=== PATIENT | male | born 1940 | race Caucasian/White ===

== ENCOUNTER 2016-07-28 20:19 | Observation (INO) | payer MEDICARE, OTHER ==
[~2016-07-28] VITALS: Ht 170.2 cm; Wt 116.9 kg
[2016-07-28 20:26] VITALS: BP 172/74; PULSE 62; RESP 18; O2SAT 96
--- NOTE | 2016-07-28 20:57 | ED.REPORT ---
HPI-Neurologic Deficit Date of Service Jul 28, 2016 ED Provider: Haris Cardona DO A 76 year old male with a history of TIA x2, migraines, and borderline hypertension presents to the ED complaining of a possible TIA. The pt began experiencing expressive aphasia, headache, and blurred vision seven days ago when he started a new job. In the ED he is experiencing headache, tinnitus, nausea, and tunnel vision. His last TIA was several years ago. The pt takes aspirin daily with no other medications. Nursing Notes Stated Complaint: POSSIBLE TIA Chief Complaint: Stroke Symptoms Nursing Notes Reviewed: Yes Allergies: Coded Allergies: Contrast Media (Verified Allergy, Unknown, 07/28/16) Penicillins (Verified Allergy, Unknown, 07/28/16) Scheduled ([D3]) 5,000 UNITS PO DAILY ([ultimate omega]) 1 TABLET PO TID ([tranquil sleep]) Unknown Dose PO HS ([bone-up]) Unknown Dose PO DAILY ([michelle]) 1 LOZENGE PO DAILY Aspirin (Aspirin) 81 Mg Tablet 81 MG PO DAILY Biotin (Reji Biotin) 10,000 Mcg Capsule 10,000 MCG PO DAILY Kava Root Extract (Kava Kava) 200 Mg Capsule 200 MG PO DAILY S-Adenosylmethionine Sul Tosyl (Nabil-E) 200 Mg Tablet 200 MG PO HS [place]'s Wort (Angel's Wort) 300 Mg Tablet 300 MG PO DAILY Scheduled PRN Acetaminophen (Tylenol Arthritis) 650 Mg Tablet.er 650 MG PO PRN For Pain Ibuprofen (Ibuprofen) 600 Mg Tablet 600 MG PO QID PRN PRN For Pain General Time Seen by Provider: 20:56 Chief Complaint Other (Possible TIA) Hx Obtained From: Patient Arrived By: Walk-in Sudden in Onset?: No Onset Occurred: 1 week ago Symptom Duration: Since onset Recent Healthcare: No recent doctor visit, No recent hospitalization Similar Sx Previous: Yes Risk Factors NIH Stroke Scale Level of Consciousness: Alert and responsive (0) Ask Month & Age: Both questions right (0) Open/Close Eyes/Hand Child And Adolescent Therapist: Performs both tasks (0) Horizontal EO Movements: None (0) Visual Lucas: No visual loss (0) Facial Palsy: Normal symmetry (0) Right Arm Motor Drift (10s): No drift 10 sec (0) Left Arm Motor Drift (10s): No drift 10 sec (0) Right Leg Motor Drift (5s): No drift 5 sec (0) Left Leg Motor Drift (5s): No drift 5 sec (0) Limb Ataxia FNF/Heel-Gaines: No ataxia (0) Sensation (Arms/Legs/Face): Pinprick less sharp (1) Language Aphasia: No aphasia, normal (0) Dysarthria: No dysarthria, normal (0) Extinction/Inattention: No exctinct/inattent (0) NIHSS Score: 1 Time NIHSS Performed: 21:40 Date NIHSS Performed: Jul 28, 2016 Past Medical History Past Medical History TIA x2 borderline HTN migraines Past Surgical History none reported Smoking History Unknown if Ever Smoker Ambulatory Status Independent Review of Systems Review of Systems Note: expressive aphasia tinnitus Constitutional: Denies: Fever Respiratory: Denies: Non-productive cough, Shortness of breath Cardiovascular: Denies: Chest pain GI: Reports: Nausea, Denies: Abdominal pain, Vomiting Musculoskeletal: Denies: Back pain Skin: Denies Rash Neurologic: Reports: Headache, Vision change Complete sys rev & neg: except as marked. Physical Exam Initial Vital Signs Vital Signs (First) Date Time Temp Pulse Resp B/P Pulse Ox O2 Delivery O2 Flow Rate FiO2 07/28/16 20:26 36.6 62 18 172/74 96 Room Air Initial VS: Reviewed General/Constitutional: Awake, Alert Head / Eyes: Atraumatic, Normocephalic, PERRL, EOMI Respiratory / Chest: Atraumatic, Breath sounds NL, Breath sounds = bilat, No respiratory distress Cardiovascular: Heart rate NL, Regular rhythm, Heart sounds NL Neurologic: Oriented X3, Speech NL, No motor deficits slightly decreased sensation of right first toe no facial asymmetry no aphasia ENT: Atraumatic, Airway patent, Mucous membranes moist Neck: Atraumatic, Supple, Full range of motion Abdomen: Atraumatic, Soft, Non-tender Back: Atraumatic, Full range of motion Upper Extremity / MS: Atraumatic, Full range of motion Lower Extremity / Pelvis / MS: Atraumatic, Full range of motion Skin: Atraumatic, Color NL, No rash, Warm, Dry Psychiatric: Affect NL, Mood NL Interpretation & Diagnostics Lab Results Interpretation Result Diagram: 07/28/16213907/28/162139 Test 07/28/16 21:40 White Blood Count 7.2th/mm3 (3.8-10.1) Red Blood Count 4.41mil/mm3 (4.40-5.80) Hemoglobin 13.4g/dL (13.8-17.2) Hematocrit 40.6% (41.0-50.0) Mean Corpuscular Volume 92.1fL (81-100) Mean Corpuscular Hemoglobin 30.4pg (27.0-35.0) Mean Corpuscular Hemoglobin Concent 33.0% (32.0-37.0) Red Cell Distribution Width 14.6% (12.3-15.4) Platelet Count 197bil/L (150-400) Neutrophils (%) (Auto) 55.7% (40-74) Lymphocytes (%) (Auto) 28.2% (14-46) Monocytes (%) (Auto) 11.4% (4-12) Eosinophils (%) (Auto) 3.6% (0-5) Basophils (%) (Auto) 0.7% (0-3) Prothrombin Time 10.3sec (8.1-12.5) Prothromb Time International Ratio 0.96ratio Sodium Level 140mEq/L (134-144) Potassium Level 4.7mEq/L (3.5-5.2) Chloride Level 104mEq/L (97-108) Carbon Dioxide Level 23mmol/L (18-29) Blood Urea Nitrogen 19mg/dL (8-27) Creatinine 1.37mg/dL (0.76-1.27) Estimat Glomerular Filtration Rate 54mL/min (>59) Glucose Level 116mg/dL (60-99) Calcium Level 9.3mg/dL (8.5-10.1) Total Bilirubin 0.2mg/dL (0.0-1.2) Aspartate Amino Transf (AST/SGOT) 20U/L (0-50) Alanine Aminotransferase (ALT/SGPT) 23U/L (0-44) Alkaline Phosphatase 52U/L (25-160) Troponin T 0.010ug/L (0.0-0.011) Total Protein 6.4g/dL (6.4-8.4) Albumin 3.8g/dL (3.4-5.0) Pulse Oximetry Interpretation Pulse Oximetry Interpretation: 96% on room air Pulse Oximetry: Pulse Ox normal ECG Interpretation ECG Interpretation: normal sinus rhythm with a rate of 56 left axis deviation low voltage, precordial leads Time: 21:29 Interpreted by: ED physician CT Head Interpretation IMPRESSION: 1. No acute intracranial abnormality. 2. Mild cerebral volume loss and chronic white matter small vessel ischemic changes. Dictated by: Marino Portillo M.D. on 07/28/2016 at 21:39 Approved by: Marino Portillo M.D. on 07/28/2016 at 21:41 Interpretation / Wet Read by: Interpret - Radiologist Re-Eval/Medical Decision Med Decision/Clinical Course Stuttering stroke type symptoms throughout the week. is not concerned that he has persistent aphasia. The only deficit I can appreciate is decreased sensation in his foot. His speech is rapid diverticula but again his family members not feel that it is at its baseline. Clearly out of the window for thrombolytics. CT was reassuring. We will admit for further stroke diagnostics including an MRI. Source of Hx: Old records Re-Evaluation/Progress : Time of Eval: 21:40 Patient Status: Condition improved Re-Evaluation/Progress Note: Pt rechecked, who is resting comfortably. NIH stroke scale is performed. Diagnosis and the plan for admission are discussed. The pt understands and agrees with the plan. All questions are addressed at this time. Consultation : Referral / Consult Name: Justin Billingsley MD Consulted With: Hospitalist Call Returned at: 22:13 [place]: Agrees with eval, Agrees with plan, Accepts admit Note: Spoke with Dr. Billingsley, hospitalist, regarding pt's case. Dr. Billingsley agrees with the evaluation and agrees to admit the pt. Counseled Regarding: Diagnosis, Lab results, Need for admission Discharge & Departure Impression: Primary Impression: Stroke CVA mechanism: unspecified Qualified Code: I63.9 - Cerebral infarction, unspecified Disposition: ADMITTED TO HOSPITAL Discharge Condition All VS Reviewed: Yes Condition: Stable Referrals: [facility] Julia Attestation Portions of this note were transcribed by Soledad Archuleta. I, Dr. Cardona personally performed the history, physical exam and medical decision-making; I reviewed and confirmed the accuracy of the information in the transcribed note. Signed by: Julia Benitez, 07/28/2016 and [id number]. copies to: [facility] Haris Cardona DO Jul 28, 2016 20:56 SOELDAD ARCHULETA Jul 28, 2016 21:15
--- NOTE | 2016-07-28 21:43 | DRSVH ---
PROCEDURE: CT BRAIN WITHOUT CONTRAST ([id number]) INDICATIONS: Stroke. Expressive aphasia and vision changes. TECHNIQUE: Noncontrast 4.5 mm thick angled axial sections acquired from the foramen magnum to the vertex, with c oronal reformats. COMPARISON: None. FINDINGS: Image quality: Excellent. CSF spaces: Basal cisterns are patent. No extra-axial fluid collections. The ventricles are symmet zachary in size and shape. There is mild cerebral volume loss, with resultant ventricular and sulcal pro minence. Brain: No intracranial hemorrhage, mass, or mass effect. There are subcortical, periventricular and deep white matter hypodensities consistent with mild chronic small vessel ischemic changes. There i s intracranial internal carotid artery atherosclerosis. Skull and face: Calvarium and visualized facial bones appear intact, without suspicious lesions. Sinuses: Visualized sinuses and mastoids are clear. IMPRESSION: 1. No acute intracranial abnormality. 2. Mild cerebral volume loss and chronic white matter small vessel ischemic changes. Dictated by: Marino Portillo M.D. on 07/28/2016 at 21:39 Approved by: Marino Portillo M.D. on 07/28/2016 at 21:41
[2016-07-28 21:49] LABS: BASOPHILS % (AUTO) 0.7 % (0-3); EOSINOPHILS % (AUTO) 3.6 % (0-5); MONOCYTES % (AUTO) 11.4 % (4-12); Mean Corpuscular Hemoglobin 30.4 pg (27.0-35.0); Mean Corpuscular Volume 92.1 fL (81-100); NEUTROPHILS % (AUTO) 55.7 % (40-74); Platelet Count 197 bil/L (150-400)
[2016-07-28 22:06] LABS: INR 0.96 ratio
[2016-07-28 22:23] LABS: TROPONIN T 0.01 ug/L (0.0-0.011)
[2016-07-28] MEDS ORDERED: S-AD200T PO (22:40)
[2016-07-28] MEDS ORDERED: IBUP-1827 PO (22:40)
[2016-07-28] MEDS ORDERED: KAVA200C PO (22:40)
[2016-07-28] MEDS ORDERED: ACET325T51 PO (22:40)
[2016-07-28] MEDS ORDERED: [UNRECOGNIZED DRUG - OTHER] PO (22:40)
[2016-07-28] MEDS ORDERED: D3 PO (22:40)
[2016-07-28] MEDS ORDERED: ULTIMATE OMEGA PO (22:40)
[2016-07-28] MEDS ORDERED: BIOT1000 PO (22:40)
[2016-07-28] MEDS ORDERED: ASPI-973 PO (22:40)
[2016-07-28] MEDS ORDERED: [UNRECOGNIZED DRUG - CODE] PO (22:40)
[2016-07-28] MEDS ORDERED: ACET-2766 PO (23:04)
[2016-07-28] MEDS ORDERED: [UNRECOGNIZED DRUG - OTHER] (23:04)
[2016-07-28 23:06] VITALS: BP 136/58; PULSE 58; RESP 15; O2SAT 95
[2016-07-28] MEDS ORDERED: gaba PO (23:08)
[2016-07-28] MEDS ORDERED: bone-up PO (23:08)
[2016-07-28 23:13] VITALS: BP 136/58; PULSE 58; RESP 15; O2SAT 95
[2016-07-28 23:34] LABS: APPEARANCE,URINE CLEAR (CLEAR,HAZY); COLOR,URINE YELLOW (YELLOW); OCCULT BLOOD,URINE NEGATIVE (NEGATIVE); PH,URINE 6.5 (5.0-8.0); UROBILINOGEN,URINE NORMAL (NORMAL)
[2016-07-28 23:46] VITALS: BP 157/74; PULSE 54; RESP 20; O2SAT 95
--- NOTE | 2016-07-29 00:45 | PCM.HPMED ---
Subjective Date of Service Jul 28, 2016 Primary Provider: Admitting Physician: Justin Billinsgley MD Primary Care Physician: Nopcp Attending Physician: Justin Billingsley MD Chief Complaint: Multiple neurological complaints. History of Present Illness: No PCP reported. Teto is an incredibly pleasant 76-year-old gentleman who is obese and has a history of multiple TIAs. He is previously been followed closely by physicians [facility] in [facility]) with a reportedly stable bilateral carotid ultrasound approximately one month ago (reports 60% occlusion on the left, 50% occlusion on the right). He does take a full dose aspirin daily, but is not on any other medications. Teto presents approximately one week after initiation of the following symptoms: Mild difficulty with word finding, reading comprehension, writing expression. The symptoms began on approximately the of this month while the patient was performing work on a computer (he was filling out unemployment paperwork). He reports that the symptoms noted were similar to his previous TIAs. He also reports associated blurry vision which is described as mild to minimal. 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 He reports that he has had difficulty remembering routes and branch locations. He reports that these difficulties have persisted for approximately the last week without any significant periods of resolution. He has noted that once or twice over the last several days he has felt somewhat unsteady on his feet, but denies falls. Patient also reports a history of migraines (mostly during childhood, but has had 3 over the last couple of months) associated with tunnel vision and subjective decreased vision in the left eye specifically. He reports that he had a 12/10 migraine headache on Saturday (07/15/16), and reports that he currently has a 2-3/10 headache that "feels like it is becoming a migraine" associated with a sensation of pulling behind the eyes bilaterally and posterior head discomfort. Patient and his spouse notes significant psychosocial stressors. They currently have a grandson living with them who reportedly has ADHD and some component of autism. The patient was also laid off from work a couple weeks ago , and recently started a new job that has significant additional work responsibilities including more work on the computer. They also just recently moved (this last summer) from [facility] to [facility]. They report significant stress associated with the aforementioned life events, and wonder if these stressors have contributed to his current presentation. Given the concerning neurologic symptoms, and his history of TIAs, recommendation is admission for CVA/TIA workup. Patient is admitted under observation status with expected length of stay less than 2 midnights due to severity of presenting symptoms, risk of adverse event, and complexity of treatment plan. Review of Systems: Comprehensive review of systems conducted and was negative except for the pertinent positives listed in history of present illness above. Allergies Coded Allergies: Contrast Media (Verified Allergy, Unknown, 07/28/16) Penicillins (Verified Allergy, Unknown, 07/28/16) Home Medications Med rec completed: Acetaminophen 650 mg as needed for pain Aspirin 81 mg daily Biotin 10,000 g daily Ibuprofen 600 mg 4 times a day as needed for pain Kava root extract 200 mg daily Nabil-E2 100 mg at hour of sleep Angel's wort 300 mg daily "Bone-up" tablet daily D3 5000 units daily "Kale" 1 lozenge daily "Tranquil sleep" tablet at hour of sleep "Ultimate [place]ternut" 1 tablet 3 times a day PMH Migraines History of TIAs * Reports at least 2 TIAs historically, and currently on daily aspirin Obesity Both patient and spouse note "undiagnosed" ADD for which the patient takes increased doses of vitamin D and Fish oil Back surgery - reports titanium basket replacement of lumbar disc Left foot surgery with titanium hardware (arch repair) Multiple right hammertoe surgeries Multiple left trigger finger releases Father with heart disease (AL at age 64 with subsequent CABG) Mother with lung/throat/metastatic cancer (significant tobacco and alcohol use throughout her life) Maternal grandfather with premature CAD, AL at age 30 Paternal grandfather with premature CAD, AL at age 47 Social History Hx Alcohol Use: Yes (quit in 1976) Hx Substance Use: Yes (reports history of cocaine and marijuana use in the early (while he was in the "[employer] business")) Hx Tobacco Use: Yes (quit in 1971) Smoking Status: Former Smoker Living Arrangement: with Family (with spouse and their grandchild on [employer]) Additional Information Patient served in the [employer] from [id number] (he was never deployed and served in [facility]). Lifelong [place]ian. Only travel is up to [place] (his spouse is from [place]) . 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 Exam Vital Signs Vital Sign - Last Date Time Temp Pulse Resp B/P Pulse Ox O2 Delivery O2 Flow Rate FiO2 07/28/16 20:26 36.6 62 18 172/74 96 Room Air Exam General: Alert, Oriented X3, Cooperative, No Acute Distress Head: Normocephalic, atraumatic. External ears normal. Eyes: PERRLA, EOMI. Anicteric sclerae. Mouth: Mouth Normal, Mucous Membranes Moist/Rawlings Neck: Neck supple with full range of motion. No Thyromegaly. Chest & Lungs: Clear to auscultation bilaterally with no crackles, wheezes, or rhonchi. Cardiovascular: Regular Rate/Rhythm, Normal S1, Normal S2, No Murmurs/Rubs/ Gallops. Radial pulses are 2+ bilaterally. No carotid bruit appreciated bilaterally. Abdomen: Non-tender, Non-distended, No masses, Normoactive bowel tones, Soft Musculoskeletal: Normal Range of Motion Extremities: No cyanosis/clubbing/edema bilat. Right foot is noticeably shorter than the left with indication for right-sided hammertoe surgeries. Neurological: Grossly Neurologically Intact, Cranial Nerves 2-12 Intact, Normal Speech, Strength Normal 4/4 ext, Sensation Intact, Cerebellar Function nl Finger-Nose. NIHSS score of 1 by ER physician, and 0 for me. Psych: Normal mood and affect. Thought process and content intact. Lab and Diagnostics Labs Laboratory Tests 72 Hours Test 07/28/16 21:40 07/28/16 23:10 White Blood Count 7.2th/mm3 (3.8-10.1) Red Blood Count 4.41mil/mm3 (4.40-5.80) Hemoglobin 13.4g/dL (13.8-17.2) Hematocrit 40.6% (41.0-50.0) Mean Corpuscular Volume 92.1fL (81-100) Mean Corpuscular Hemoglobin 30.4pg (27.0-35.0) Mean Corpuscular Hemoglobin Concent 33.0% (32.0-37.0) Red Cell Distribution Width 14.6% (12.3-15.4) Platelet Count 197bil/L (150-400) Neutrophils (%) (Auto) 55.7% (40-74) Lymphocytes (%) (Auto) 28.2% (14-46) Monocytes (%) (Auto) 11.4% (4-12) Eosinophils (%) (Auto) 3.6% (0-5) Basophils (%) (Auto) 0.7% (0-3) Prothrombin Time 10.3sec (8.1-12.5) Prothromb Time International Ratio 0.96ratio Sodium Level 140mEq/L (134-144) Potassium Level 4.7mEq/L (3.5-5.2) Chloride Level 104mEq/L (97-108) Carbon Dioxide Level 23mmol/L (18-29) Blood Urea Nitrogen 19mg/dL (8-27) Creatinine 1.37mg/dL (0.76-1.27) Estimat Glomerular Filtration Rate 54mL/min (>59) Glucose Level 116mg/dL (60-99) Calcium Level 9.3mg/dL (8.5-10.1) Total Bilirubin 0.2mg/dL (0.0-1.2) Aspartate Amino Transf (AST/SGOT) 20U/L (0-50) Alanine Aminotransferase (ALT/SGPT) 23U/L (0-44) Alkaline Phosphatase 52U/L (25-160) Troponin T 0.010ug/L (0.0-0.011) Total Protein 6.4g/dL (6.4-8.4) Albumin 3.8g/dL (3.4-5.0) Urine Color Yellow (YELLOW) Urine Appearance Clear (CLEAR,HAZY) Urine pH 6.5 (5.0-8.0) Urine Specific [place] 1.015 (1.003-1.035) Urine Protein Negativemg/dL (NEG,TRACE) Urine Glucose (UA) Negativemg/dL (NEGATIVE) Urine Ketones Negativemg/dL (NEGATIVE) Urine Occult Blood Negative (NEGATIVE) Urine Nitrite Negative (NEGATIVE) Urine Bilirubin Negative (NEGATIVE) Urine Urobilinogen Normalmg/dL (NORMAL) Urine Leukocyte Esterase Negative (NEGATIVE) Urine RBC 0-2/hpf (0-2) Urine WBC 0-5/hpf (0-5) Urine Epithelial Cells Occasional/hpf (NONE-MOD) Urine Crystals None seen (NONE SEEN) Urine Bacteria None/hpf (NONE-FEW) Urine Hyaline Casts None/lpf (NONE) Urine Granular Casts None seen (NONE SEEN) Urine Waxy Casts None seen (NONE SEEN) Urine Red Blood Cell Casts None seen (NONE SEEN) Urine White Blood Cell Casts None seen (NONE SEEN) Urine Mucus None seen (None Seen) Urine Trichomonas None seen (NONE SEEN) Urine Yeast None (NONE SEEN) Urine Culture Reflexed Not indicated Result Diagram: 07/28/16213907/28/162139 Microbiology None this visit X-Rays, CTs and MRIs Date of Service: 07/28/162056 PROCEDURE: CT BRAIN WITHOUT CONTRAST ([id number]) INDICATIONS: Stroke. Expressive aphasia and vision changes. COMPARISON: None. IMPRESSION: 1. No acute intracranial abnormality. 2. Mild cerebral volume loss and chronic white matter small vessel ischemic changes. Dictated by: Marino Portillo M.D. on 07/28/2016 at 21:39 12-lead ECG Sinus rhythm with rate in the high 50s. Borderline left axis deviation. QTc 388. Somewhat poor R-wave progression. No ST or T-wave changes suggestive of acute ischemia. Cardiac Echo Impressions None this visit Assessment & Plan Teto is a pleasant, obese 76-year-old male with history of multiple TIAs and migraines. He presents with an approximately one-week history of difficulty with word finding, reading comprehension, writing expression, periods of unsteadiness on his feet, blurry vision, and short-term memory difficulty. 1. CVA/TIA, acute. Present on admission -Given his significant history of TIAs, we will pursue workup as follows: -MR evaluation of his brain with evaluation of vasculature as well -Echocardiogram with bubble study -Monitor blood pressure overnight, and consideration for adding hydralazine for significant hypertension (given his heart rate in the 50s) -Neuro checks every 4 hours -I do not appreciate any need at this time to pursue ultrasound of his carotid arteries (as this was done about a month ago and reportedly stable). However, consider pursuing if symptoms worsen, or do not resolve. -Consideration for vasculitic workup given his multiple TIAs history -Differential diagnosis includes complicated migraines, stress/anxiety. Please note that the patient does take Orange's wort (MONI include dizziness/confusion ) -Continue to monitor labs, vital signs, clinical course -We will add lipid panel and hemoglobin A1c -Consideration for initiating statin therapy (patient reports that his cholesterol is great, but statins can provide anti-inflammatory benefit) -Consideration for initiating antihypertensive therapy given his elevated blood pressures -Swallow eval to be performed by nurse at bedside prior to initiation of diet -PT and OT -Up with assist given his report of unsteady gait 2. Acute kidney injury (this is presumed to be acute given patient's denial of renal dysfunction in the past). Present on admission -Unclear etiology at this time, but consideration for decreased by mouth intake in the setting of his neurologic symptoms and increased stress -If patient is not appropriate for by mouth intake, we will initiate IV fluids ( somewhat gently given his hypertension) -Continue to monitor lab 3. Borderline normocytic anemia of unknown chronicity. Present on admission -Continue to monitor lab -As there is no report of bloody or black stool, consideration for assessing with a guaiac Chronic conditions: Migraines-monitor closely with consideration for referral to neurology in outpatient setting for further evaluation. MR as noted above. Obesity-lipid panel as noted above. Family history of premature CAD-risk prevention as noted above. Patient is admitted under observation status with expected length of stay less than 2 midnights due to severity of presenting symptoms, risk of adverse event, and complexity of treatment plan. Pain Evaluation: Adequate Pain Control GI Prophylaxis: Not indicated VTE Prophylaxis: Sub-Q Heparin (Unfractionated) Resuscitation Status: CPR: Attempt Resuscitation Attending Statement The patient was seen and examined together with Dr. Styles on 07/28 and I agree with the history, exam and plan as outlined in the note above. copies to: Marbin Peres DO Jul 28, 2016 23:02 Justin Billingsley MD Jul 29, 2016 19:19
--- NOTE | 2016-07-29 00:53 | PCM.DC.MED ---
Discharge Summary Date of Service Jul 29, 2016 Dates of Hospitalization Date of Hospital Admission Jul 28, 2016 at 22:40 Date of Discharge: Jul 28, 2016 Providers: Admitting Physician: Justin Billingsley MD Primary Care Physician: Noplaith Attending Physician: Justin Billingsley MD Diagnosis at Time of Discharge Diagnosis at Time of Discharge See hospital course below. Concern for TIA/CVA. Consultations None Procedures XRay, CTs & MRIs Date of Service: 07/28/162056 PROCEDURE: CT BRAIN WITHOUT CONTRAST ([id number]) INDICATIONS: Stroke. Expressive aphasia and vision changes. COMPARISON: None. IMPRESSION: 1. No acute intracranial abnormality. 2. Mild cerebral volume loss and chronic white matter small vessel ischemic changes. Dictated by: Marino Portillo M.D. on 07/28/2016 at 21:39 ECG 12 Lead Sinus rhythm with rate in the high 50s. Borderline left axis deviation. QTc 388. Somewhat poor R-wave progression. No ST or T-wave changes suggestive of acute ischemia. Cardiac Echo Impression None this visit Brief History The following is from my history and physical obtained and completed shortly before patient left AMA. No PCP reported. Teto is an incredibly pleasant 76-year-old gentleman who is obese and has a history of multiple TIAs. 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 He does take a full dose aspirin daily, but is not on any other medications. Teot presents approximately one week after initiation of the following symptoms: Mild difficulty with word finding, reading comprehension, writing expression. The symptoms began on approximately the of this month while the patient was performing work on a computer (he was filling out unemployment paperwork). He reports that the symptoms noted were similar to his previous TIAs. He also reports associated blurry vision which is described as mild to minimal. 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 He reports that he has had difficulty remembering routes and branch locations. He reports that these difficulties have persisted for approximately the last week without any significant periods of resolution. He has noted that once or twice over the last several days he has felt somewhat unsteady on his feet, but denies falls. Patient also reports a history of migraines (mostly during childhood, but has had 3 over the last couple of months) associated with tunnel vision and subjective decreased vision in the left eye specifically. He reports that he had a 12/10 migraine headache on Saturday (07/15/16), and reports that he currently has a 2-3/10 headache that "feels like it is becoming a migraine" associated with a sensation of pulling behind the eyes bilaterally and posterior head discomfort. Patient and his spouse notes significant psychosocial stressors. They currently have a grandson living with them who reportedly has ADHD and some component of autism. The patient was also laid off from work a couple weeks ago , and recently started a new job that has significant additional work responsibilities including more work on the computer. They also just recently moved (this last summer) from [facility] to [facility]. They report significant stress associated with the aforementioned life events, and wonder if these stressors have contributed to his current presentation. Given the concerning neurologic symptoms, and his history of TIAs, recommendation is admission for CVA/TIA workup. Patient is admitted under observation status with expected length of stay less than 2 midnights due to severity of presenting symptoms, risk of adverse event, and complexity of treatment plan. Hospital Course Teto is a pleasant, obese 76-year-old male with history of multiple TIAs and migraines. He presents with an approximately one-week history of difficulty with word finding, reading comprehension, writing expression, periods of unsteadiness on his feet, blurry vision, and short-term memory difficulty. 1. CVA/TIA, acute. Present on admission -Given his significant history of TIAs, we attempted to pursue, but patient left AMA. -I did not appreciate any need at this time to pursue ultrasound of his carotid arteries (as this was done about a month ago and reportedly stable). -Consideration for vasculitic workup given his multiple TIAs history -Differential diagnosis includes complicated migraines, stress/anxiety. Please note that the patient does take Angel's wort (MONI include dizziness/confusion ) -Consideration for lipid panel and hemoglobin A1c -Consideration for initiating statin therapy (patient reports that his cholesterol is great, but statins can provide anti-inflammatory benefit) -Consideration for initiating antihypertensive therapy given his elevated blood pressures 2. Acute kidney injury (this is presumed to be acute given patient's denial of renal dysfunction in the past). Present on admission -Unclear etiology at this time, but consideration for decreased by mouth intake in the setting of his neurologic symptoms and increased stress 3. Borderline normocytic anemia of unknown chronicity. Present on admission -As there is no report of bloody or black stool, consideration for assessing with a guaiac Chronic conditions: Migraines-consideration for referral to neurology in outpatient setting for further evaluation. Obesity-as noted above. Family history of premature CAD-as noted above. Patient is admitted under observation status with expected length of stay less than 2 midnights due to severity of presenting symptoms, risk of adverse event, and complexity of treatment plan. Patient and spouse voiced preference for leaving the hospital AMA as he felt "pretty good." Risk of leaving AMA (including possibility of ) were discussed and explained with the patient and spouse by Dr. Billingsley, the attending night hospitalist, and they voiced understanding and intention to go. Patient education provided by Dr. Billingsley on when to return to the hospital. Patient and spouse left AMA at 2353 on 07/28/16. Exam Vital Signs (Last) Date Time Temp Pulse Resp B/P Pulse Ox O2 Delivery O2 Flow Rate FiO2 07/28/16 23:46 36.6 54 20 157/74 95 Room Air Exam The following is from my history and physical completed just prior to patient leaving AMA. General: Alert, Oriented X3, Cooperative, No Acute Distress Head: Normocephalic, atraumatic. External ears normal. Eyes: PERRLA, EOMI. Anicteric sclerae. Mouth: Mouth Normal, Mucous Membranes Moist/[place] Neck: Neck supple with full range of motion. No Thyromegaly. Chest & Lungs: Clear to auscultation bilaterally with no crackles, wheezes, or rhonchi. Cardiovascular: Regular Rate/Rhythm, Normal S1, Normal S2, No Murmurs/Rubs/ Gallops. Radial pulses are 2+ bilaterally. No carotid bruit appreciated bilaterally. Abdomen: Non-tender, Non-distended, No masses, Normoactive bowel tones, Soft Musculoskeletal: Normal Range of Motion Extremities: No cyanosis/clubbing/edema bilat. Right foot is noticeably shorter than the left with indication for right-sided hammertoe surgeries. Neurological: Grossly Neurologically Intact, Cranial Nerves 2-12 Intact, Normal Speech, Strength Normal 4/4 ext, Sensation Intact, Cerebellar Function nl Finger-Nose. NIHSS score of 1 by ER physician, and 0 for me. Psych: Normal mood and affect. Thought process and content intact. Test 07/28/16 21:40 07/28/16 23:10 White Blood Count 7.2th/mm3 (3.8-10.1) Red Blood Count 4.41mil/mm3 (4.40-5.80) Hemoglobin 13.4g/dL (13.8-17.2) Hematocrit 40.6% (41.0-50.0) Mean Corpuscular Volume 92.1fL (81-100) Mean Corpuscular Hemoglobin 30.4pg (27.0-35.0) Mean Corpuscular Hemoglobin Concent 33.0% (32.0-37.0) Red Cell Distribution Width 14.6% (12.3-15.4) Platelet Count 197bil/L (150-400) Neutrophils (%) (Auto) 55.7% (40-74) Lymphocytes (%) (Auto) 28.2% (14-46) Monocytes (%) (Auto) 11.4% (4-12) Eosinophils (%) (Auto) 3.6% (0-5) Basophils (%) (Auto) 0.7% (0-3) Prothrombin Time 10.3sec (8.1-12.5) Prothromb Time International Ratio 0.96ratio Sodium Level 140mEq/L (134-144) Potassium Level 4.7mEq/L (3.5-5.2) Chloride Level 104mEq/L (97-108) Carbon Dioxide Level 23mmol/L (18-29) Blood Urea Nitrogen 19mg/dL (8-27) Creatinine 1.37mg/dL (0.76-1.27) Estimat Glomerular Filtration Rate 54mL/min (>59) Glucose Level 116mg/dL (60-99) Calcium Level 9.3mg/dL (8.5-10.1) Total Bilirubin 0.2mg/dL (0.0-1.2) Aspartate Amino Transf (AST/SGOT) 20U/L (0-50) Alanine Aminotransferase (ALT/SGPT) 23U/L (0-44) Alkaline Phosphatase 52U/L (25-160) Troponin T 0.010ug/L (0.0-0.011) Total Protein 6.4g/dL (6.4-8.4) Albumin 3.8g/dL (3.4-5.0) Urine Color Yellow (YELLOW) Urine Appearance Clear (CLEAR,HAZY) Urine pH 6.5 (5.0-8.0) Urine Specific [place] 1.015 (1.003-1.035) Urine Protein Negativemg/dL (NEG,TRACE) Urine Glucose (UA) Negativemg/dL (NEGATIVE) Urine Ketones Negativemg/dL (NEGATIVE) Urine Occult Blood Negative (NEGATIVE) Urine Nitrite Negative (NEGATIVE) Urine Bilirubin Negative (NEGATIVE) Urine Urobilinogen Normalmg/dL (NORMAL) Urine Leukocyte Esterase Negative (NEGATIVE) Urine RBC 0-2/hpf (0-2) Urine WBC 0-5/hpf (0-5) Urine Epithelial Cells Occasional/hpf (NONE-MOD) Urine Crystals None seen (NONE SEEN) Urine Bacteria None/hpf (NONE-FEW) Urine Hyaline Casts None/lpf (NONE) Urine Granular Casts None seen (NONE SEEN) Urine Waxy Casts None seen (NONE SEEN) Urine Red Blood Cell Casts None seen (NONE SEEN) Urine White Blood Cell Casts None seen (NONE SEEN) Urine Mucus None seen (None Seen) Urine Trichomonas None seen (NONE SEEN) Urine Yeast None (NONE SEEN) Urine Culture Reflexed Not indicated Microbiology Results None this visit Discharge Medications Discharge Medications ([D3]) 5,000 UNITS PO DAILY (Reported) ([ultimate omega]) 1 TABLET PO TID (Reported) ([tranquil sleep]) Unknown Dose PO HS (Reported) ([bone-up]) Unknown Dose PO DAILY (Reported) ([michelle]) 1 LOZENGE PO DAILY (Reported) Aspirin (Aspirin) 81 Mg Tablet 81 MG PO DAILY (Reported) Biotin (Reji Biotin) 10,000 Mcg Capsule 10,000 MCG PO DAILY (Reported) Kava Root Extract (Kava Kava) 200 Mg Capsule 200 MG PO DAILY (Reported) S-Adenosylmethionine Sul Tosyl (Nabil-E) 200 Mg Tablet 200 MG PO HS (Reported) Angel's Wort ([place]'s Wort) 300 Mg Tablet 300 MG PO DAILY (Reported) As needed Acetaminophen (Tylenol Arthritis) 650 Mg Tablet.er 650 MG PO PRN For Pain ( Reported) Ibuprofen (Ibuprofen) 600 Mg Tablet 600 MG PO QID PRN PRN For Pain (Reported) Additional med instructions Patient left AMA. Followup Plan Disposition: Home. AMA. Follow-up plan As noted above, education provided on when to return to the hospital. Attending Statement The patient was seen and examined together with Dr. Styles on 07/28 and I agree with the history, exam and plan as outlined in the note above. Marbin Devlin DO Jul 29, 2016 00:53 Justin Billingsley MD Jul 29, 2016 19:19
--- NOTE | 2016-07-29 01:08 | NUR ---
AMA Patient left against medical advice. concerned about being observation status and not having insurance pay for patients stay. MD notified. MD in to talk with patient and . Patient decided that he would rather go home and come back if his symptoms get worse. Patient was given Stroke education booklet. Patient is aware that by leaving AMA he is at risk for stroke, paralysis, and/or . patient signed AMA paper IV d/c'd intact. Patient left with .
== END 2016-07-28 23:57 | disposition left against medical advice (07) ==
LOC: SED 20:19 → MPC 22:40
PROVIDERS: ADMIT Hospitalist; ATTEND Hospitalist
DX: R47.01 Aphasia (principal); H53.8 Other visual disturbances; R41.3 Other amnesia; N17.9 Acute kidney failure, unspecified; D64.9 Anemia, unspecified; E66.9 Obesity, unspecified; Z68.41 Body mass index [BMI] 40.0-44.9, adult; Z87.891 Personal history of nicotine dependence; Z86.73 Personal history of transient ischemic attack (TIA), and cerebral infarction without residual deficits; Z79.82 Long term (current) use of aspirin; Z82.49 Family history of ischemic heart disease and other diseases of the circulatory system
CPT/HCPCS: 36415; 70450; 80053; 81000; 84484; 85025; 85610; 93005; 99285; G0378